=== PATIENT | female | born 1950 | race Caucasian/White ===

== ENCOUNTER 2017-09-23 14:19 | Outpatient (CLI) | payer MEDICARE ==
[2017-09-23 15:42] LABS: #Basophils 0.1 thou/uL (0.0-0.2); #Eosinphils 0.1 thou/uL (0.0-0.7); #Monocytes 0.4 thou/uL (0.11-0.59); #Neutrophils 2.5 thou/uL (1.40-6.50); %Basophils 1.5 % (0.0-1.0); %Eosinophils 2.5 % (0.0-10.0); %Lymphocytes 39.3 % (21.0-51.0); %Monocytes 8.1 % (0.0-10.0); %Neutrophils 48.6 % (42.0-75.0); Hemoglobin 14.2 g/dL (12.0-16.0); Mean Corpuscular HGB CONC 33.5 g/dL (32.0-36.0); Mean Corpuscular Hemoglobin 32.3 pg (27.0-31.0); Mean Corpuscular Volume 96.6 fl (81.0-99.0); Mean Platelet Volume 8.8 fL (7.4-10.4); Platelet Count 197 thou/uL (130-400); RBC Distribution Width 11.8 % (11.5-14.5)
[2017-09-23 16:01] LABS: ALT (SGPT) 13 U/L (8-55); AST (SGOT) 16 U/L (5-34); Albumin 4.5 g/dL (3.4-4.8); Alkaline Phosphatase 59 U/L (40-150); Anion Gap 12 mmol/L (10-20); BUN (Urea Nitrogen) 16 mg/dL (9.8-20.1); Bilirubin, Total 0.6 mg/dL (0.2-1.2); Calc. Creatinine Clearance 0 mL/min (70-130); Calcium 9.8 mg/dL (7.8-10.44); Carbon Dioxide 27 mmol/L (23-31); Chloride 104 mmol/L (98-107); Estimated GFR-MDRD 75; Globulin 2.5 g/dL (2.4-3.5); Glucose 81 mg/dL (80-115); Potassium 4.3 mmol/L (3.5-5.1); Sodium 139 mmol/L (136-145)
== END 2017-09-23 14:20 | disposition home or self-care (01) ==
LOC: LABBT 14:19
PROVIDERS: ATTEND Specialist
DX: Z01.812 Encounter for preprocedural laboratory examination (principal); K80.20 Calculus of gallbladder without cholecystitis without obstruction
CPT/HCPCS: 80053; 85025

== ENCOUNTER 2017-09-29 06:16 | Day surgery (SDC) | payer MEDICARE ==
[2017-09-23 14:32] VITALS: BMI 28.5
[2017-09-29] MEDS ORDERED: HYDROmorphone 0.5 MG/0.5 ML SYRINGE ONE (06:31)
[2017-09-29] MEDS ORDERED: Fentanyl 100 MCG/2 ML VIAL ONE (06:31)
[2017-09-29] MEDS ORDERED: CEFAZOLIN/Water 2 GM/20 ML SYRINGE ONE (06:50)
[2017-09-29] MEDS ORDERED: Ketorolac Tromethamine 30 MG/ML VIAL ONE (06:50)
[2017-09-29] MEDS ORDERED: Bupivacaine 0.25% HCL 30 ML VIAL ONE (07:00)
[2017-09-29] MEDS ORDERED: Iothalamate Meglumine 60% 50 ML VIAL FS ONE (07:00)
[2017-09-29] MEDS ORDERED: Scopolamine 1.5 mg/72 hour Patch ONE (07:08)
[2017-09-29] MEDS ORDERED: Lidocaine 1% w/Epinephrine 1:200K 30 ML VIAL ONE (07:59)
--- NOTE | 2017-09-29 09:36 | OP ---
DATE OF PROCEDURE: 09/29/2017 PREOPERATIVE DIAGNOSIS: Symptomatic cholelithiasis. POSTOPERATIVE DIAGNOSIS: Symptomatic cholelithiasis. PROCEDURE: Laparoscopic cholecystectomy. SURGEON: Harjinder Cotton M.D. ANESTHESIA: General endotracheal. INDICATIONS: The patient is a 67-year-old white female. She presents with symptoms referable to the gallbladder and ultrasound proven cholelithiasis. She is taken to the operating room at this time f or laparoscopic cholecystectomy. She has had a prior upper midline abdominal incision from a Danielle fundoplication. OPERATIVE PROCEDURE IN DETAIL: Informed consent was obtained. The patient was taken to the operatin g room where general endotracheal anesthesia was obtained with the patient in supine position. Abdom en was prepped with ChloraPrep and draped in sterile fashion. Local anesthetic was infiltrated and a n 11 mm transverse infraumbilical incision was created through which a Veress needle was passed into the peritoneal cavity and pneumoperitoneum established using carbon dioxide up to a pressure of 15 mm Hg. A 5 mm trocar was passed through this incision, laparoscopic camera was passed through this port . The abdomen was surveyed. There were found to be adhesions to the upper midline abdominal incisio n, but no significant right upper quadrant adhesions. Under direct vision, I placed three 5 mm right upper quadrant ports and I replaced the umbilical port with an 11 mm port. The adhesions overlying the gallbladder and to the right lobe of the liver were taken down using elec trocautery. There was no bowel involved in these adhesions. As the gallbladder was elevated, it was found that the duodenum was intimately adherent to the gallbladder wall. I carefully dissected the duodenum away from the gallbladder, taking care to avoid injury to the underlying bowel. The gallbladder was grasped and retracted in cephalad direction. The infundibulum was grasped and re tracted laterally and inferiorly. Careful dissection was carried out the apex of the gallbladder. T here was significant scarring in this area, but minimal fibrosis. The duct and artery were both care fully identified, dissected circumferentially, divided between clips leaving two on the side within t he abdomen. The gallbladder was then dissected out of the gallbladder fossa using electrocautery and hemostasis was meticulous. The gallbladder was removed through the umbilical port site and the fasc ia was closed with 0 Vicryl suture using a GraNee needle. There were numerous small stones within th e gallbladder. The right upper quadrant was irrigated. All irrigant was aspirated. Hemostasis was again inspected. All ports and instruments were removed under direct vision. Pneumoperitoneum was carefully evacuat ed. Quarter percent Marcaine with epinephrine was infiltrated in each port site. Skin edges approxi mated with 4-0 Monocryl subcuticular suture. Dermabond was placed externally. There were no complic ations. The patient tolerated the procedure well and was taken to recovery in stable condition.
[2017-09-29] MEDS ORDERED: Ondansetron HCl/PF 4 MG/2 ML Vial ONE (16:15)
[2017-09-29] MEDS ORDERED: Labetalol 100 MG/20 ML MDV ONE (16:15)
[2017-09-29] MEDS ORDERED: Metoclopramide HCl 10 MG/2 ML VIAL ONE (16:15)
[2017-09-29] MEDS ORDERED: Lidocaine 1% PF 5 ML VIAL ONE (16:15)
[2017-09-29] MEDS ORDERED: Succinylcholine Chloride 20 MG/ML 10 ml SYRINGE FS ONE (16:15)
[2017-09-29] MEDS ORDERED: Dexamethasone 20 MG/5 ML VIAL ONE (16:15)
[2017-09-29] MEDS ORDERED: Glycopyrrolate 0.2 MG/ML 5 ML SYRINGE ONE (16:15)
[2017-09-29] MEDS ORDERED: Propofol 200 MG/20 ML VIAL ONE (16:15)
[2017-09-29] MEDS ORDERED: ePHEDrine/0.9% NaCl/PF SYRINGE 50 mg/10 ml ONE (16:15)
== END 2017-09-29 11:15 | disposition home or self-care (01) ==
LOC: SDC 06:16
PROVIDERS: ATTEND Specialist
PROC: 0FT44ZZ Resection of Gallbladder, Percutaneous Endoscopic Approach (ICD-10-PCS; principal; 2017-09-29)
DX: K80.10 Calculus of gallbladder with chronic cholecystitis without obstruction (principal); Z80.1 Family history of malignant neoplasm of trachea, bronchus and lung; Z90.49 Acquired absence of other specified parts of digestive tract; Z98.51 Tubal ligation status; Z98.890 Other specified postprocedural states
CPT/HCPCS: 88304; J0131; J1100; J1170; J1885; J2001; J2405; J2704; J2765; J3010; Q9961; S0020

== ENCOUNTER 2020-04-18 12:34 | Outpatient (CLI) | payer MEDICARE | END 2020-04-18 12:35 | disposition home or self-care (01) | PROVIDERS: ATTEND Internal Medicine | DX: R00.2 Palpitations (principal) | CPT/HCPCS: 93225; 93226 ==

== ENCOUNTER 2020-12-26 11:50 | Outpatient (CLI) | payer OTHER | END 2020-12-26 11:51 | disposition home or self-care (01) | LOC: DTY/OP 11:50 | PROVIDERS: ATTEND Nurse Practitioner Adult Health | DX: E66.3 Overweight (principal) | CPT/HCPCS: 97802 ==